=== PATIENT | male | born 2000 | race Caucasian/White ===

== ENCOUNTER 2022-04-14 12:44 | Emergency (ER) | payer OTHER ==
[2022-04-14 13:09] VITALS: BP 132/65; PULSE 76; RESP 16; TEMP 97.2; BMI 24.3
[2022-04-14] MEDS ORDERED: KETOROLAC TROMETHAMINE 15 MG/ML VIAL IM ONE (13:15)
[2022-04-14] MEDS ORDERED: DEXAMETHASONE SOD PHOSPHATE 10 MG/1 ML VIAL IM ONE (13:15)
[2022-04-14] MEDS ORDERED: ACETAMINOPHEN 325 MG TABLET (FP) PO ONE (13:15)
[2022-04-14] MEDS ORDERED: ACETAMINOPHEN 325 MG TABLET (FP) ONE (13:25)
[2022-04-14] MEDS ORDERED: DEXAMETHASONE SOD PHOSPHATE 10 MG/1 ML VIAL ONE (13:25)
[2022-04-14] MEDS ORDERED: KETOROLAC TROMETHAMINE 15 MG/ML VIAL ONE (13:25)
[2022-04-14] MEDS ORDERED: AMOX TR/POT CLAV 500MG/125MG TABLETS (FP) PO ONE (13:27)
[2022-04-14] MEDS ORDERED: AMOX TR/POT CLAV 500MG/125MG TABLETS (FP) ONE (13:28)
== END 2022-04-14 13:51 | disposition home or self-care (01) ==
LOC: JER 12:44 → JERFT 12:44
PROC: 3E023GC Introduction of Other Therapeutic Substance into Muscle, Percutaneous Approach (ICD-10-PCS; principal; 2022-04-14)
DX: J03.90 Acute tonsillitis, unspecified (principal)
CPT/HCPCS: 0241U-QW; 87651; 99284-25; J1100